=== PATIENT | female | born 1995 ===

== ENCOUNTER 2025-04-20 10:00 | Day surgery (SDC) | payer OTHER ==
[2025-04-14 13:29] VITALS: BP 116/79
[~2025-04-20] VITALS: Ht 167.6 cm; Wt 81.6 kg
[2025-04-20] MEDS ORDERED: CEFTRIAXONE SODIUM 2,000 MG VIAL ONE ×2 (11:08→16:46)
[2025-04-20] MEDS ORDERED: METRONIDAZOLE/SODIUM CHLORIDE 500 MG/100 ML PIGGYBACK IV ONE ×2 (11:09→16:46)
[2025-04-20] MEDS ORDERED: LIDOCAINE HCL 1%/EPINEPHRINE 20ML VIAL IJ ONE (16:16)
[2025-04-20] MEDS ORDERED: BUPIVACAINE HCL/Mpf 0.5% 10ML VIAL ONE (16:16)
[2025-04-20] MEDS ORDERED: POVIDONE-IODINE 118 ML BOTT TOP ONE (16:16)
[2025-04-20] MEDS ORDERED: HEMOSTATIC MATRIX 1 KIT KIT TOP ONE (16:16)
[2025-04-20] MEDS ORDERED: DIBUCAINE 30 GM TUBE ONE (16:16)
[2025-04-20] MEDS ORDERED: INTESTINEX680 M1 PO (17:29)
[2025-04-20] MEDS ORDERED: PERCOCET 5-3251 EACH PO (17:30)
[2025-04-20] MEDS ORDERED: NEURONTIN300 MG PO (17:30)
[2025-04-20] MEDS ORDERED: CELECOXIB200 MG PO (17:30)
[2025-04-20] MEDS ORDERED: ONDANSETRON HCL 2 MG/ML VIAL ONE (19:02)
== END 2025-04-20 21:55 | disposition home or self-care (01) ==
LOC: CIR.AMB 10:00
PROVIDERS: ATTEND Surgery
DX: K60.1 Chronic anal fissure (principal); K62.5 Hemorrhage of anus and rectum; K62.89 Other specified diseases of anus and rectum; Z88.2 Allergy status to sulfonamides; Z91.013 Allergy to seafood